=== PATIENT | female | born 1990 | race Caucasian/White ===

== ENCOUNTER 2018-03-26 17:29 | Emergency (ER) | payer OTHER ==
--- NOTE | 2018-03-26 18:00 | EDPHY ---
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 She described it is a sharp right retro-orbital headache with associated paresthesias in her right arm with some mild associated confusion. The patient's symptoms lasted for approximately half an hour then slowly resolved. At the time of her evaluation in the ED she is entirely asymptomatic. She has a history of headaches remotely in the past. She does not recall neurologic symptoms with her prior headaches. The patient denies any history of fall or trauma. She denies neck pain or cervical manipulation. The patient denies additional acute complaints. REVIEW OF SYSTEMS: A comprehensive 10 point review of systems is otherwise negative aside from elements mentioned in the history of present illness. Source: Patient Exam Limitations: No limitations - Personal History LMP (Females 10-55): 22-28 Days Ago Current Tetanus Diphtheria and Acellular Pertussis (TDAP): Yes - Medical/Surgical History Hx Asthma: No Hx Chronic Respiratory Disease: No Hx Diabetes: No Hx Cardiac Disease: No Hx Renal Disease: No Hx Cirrhosis: No Hx Alcoholism: No Hx HIV/AIDS: No Hx Splenectomy or Spleen Trauma: No Other PMH: DENIES - Social History Smoking Status: Current every day smoker - Physical Exam Exam: General Appearance: Alert, no distress Eyes: Pupils equal and round no pallor or injection ENT, Mouth: Mucous membranes moist Respiratory: There are no retractions, lungs are clear to auscultation Cardiovascular: Regular rate and rhythm Gastrointestinal: Abdomen is soft and nontender, no masses, bowel sounds normal Neurological: A&O, normal motor function, normal sensory exam, normal cranial nerves Skin: Warm and dry, no rashes Neck: Neck is supple nontender, no carotid bruit Extremities: symmetrical, full range of motion Psychiatric: Patient is oriented X 3, there is no agitation Constitutional: Initial Vital Signs Temperature (C) 36.7 C 03/26/18 17:34 Heart Rate 86 03/26/18 17:34 Respiratory Rate 20 03/26/18 17:34 Blood Pressure 159/97 H 03/26/18 17:34 O2 Sat (%) 100 03/26/18 17:34 O2 Delivery Mode Room Air Allergies/Adverse Reactions: No Known Allergies Allergy (Unverified 03/26/18 17:33) Home Medications: Medication Instructions Recorded NK [No Known Home Meds] 03/26/18 Medical Decision Making ED Course/Re-evaluation: The patient presents the ED with symptoms of consistent with a classic migraine. She has no risk factors for stroke or TIA. Her neurologic examination is completely normal. She has no fever meningeal symptoms. I discussed the low yield of neuro imaging in the absence of any ongoing symptoms. The patient is comfortable being discharged home. She will be advised to return to the ED for the development of any recurrent neurologic symptoms which are worsening, fever, severe headache, neck stiffness or other concerns. Patient is advised to use Tylenol and ibuprofen as needed. She is also given the number of our on-call neurologist if she becomes more symptomatic in terms of frequent migraines. Differential Diagnosis: Differential diagnosis considered includes migraine, stroke, TIA - Data Points Laboratory Results: 03/26/18 18:10 POC Hgb 15.3 gm/dL gm/dL (12.6-16.3) POC Hct 45 % % (38-47) POC Sodium 141 mEq/L mEq/L (135-145) POC Potassium 3.8 mEq/L mEq/L (3.3-5.0) POC Chloride 103 mEq/L mEq/L (97-110) POC BUN 8 mg/dL mg/dL (7-23) POC Creatinine 0.6 mg/dL mg/dL (0.6-1.0) POC Glucose 80 mg/dL mg/dL (70-100) Point of Care Test Results: Chemistry 03/26/18 18:10 POC Sodium 141 mEq/L mEq/L (135-145) POC Potassium 3.8 mEq/L mEq/L (3.3-5.0) POC Chloride 103 mEq/L mEq/L (97-110) POC BUN 8 mg/dL mg/dL (7-23) POC Creatinine 0.6 mg/dL mg/dL (0.6-1.0) POC Glucose 80 mg/dL mg/dL (70-100) ISTAT H&H 03/26/18 18:10 POC Hgb 15.3 gm/dL gm/dL (12.6-16.3) POC Hct 45 % % (38-47) Departure - Departure Disposition: Home, Routine, Self-Care Clinical Impression: Migraine headache Condition: Good Instructions: Migraine Headache (ED) Additional Instructions: 1. Tylenol and ibuprofen as needed for pain. 2. Given the complete resolution of your symptoms I recommend returning to the ED only in the event of recurrent symptoms or other concerns. 2. I do believe you experienced a migraine headache today. If this becomes more frequent condition I would recommend following up with Neurology. You have been given the number of our on-call neurologist Dr. Mora. Referrals: Armaan Mora DO [Medical Doctor] - As per Instructions
[2018-03-26 18:08] VITALS: BP 143/94
== END 2018-03-26 18:40 | disposition home or self-care (01) ==
DX: G43.909 Migraine, unspecified, not intractable, without status migrainosus (principal); R20.2 Paresthesia of skin; F17.200 Nicotine dependence, unspecified, uncomplicated
CPT/HCPCS: 82435-PO; 82565-PO; 82947-PO; 84132-PO; 84295-PO; 84520-PO; 85014-PO